=== PATIENT | male | born 1990 | race Caucasian/White ===

== ENCOUNTER 2018-02-13 20:58 | Emergency (ER) | payer BC ==
[~2018-02-13] VITALS: Ht 188 cm; Wt 152.4 kg
[2018-02-13 21:02] VITALS: Ht 188 cm; Wt 152.4 kg
[2018-02-13 21:42] LABS: microscopic required? NO
[2018-02-13 21:47] LABS: BASOPHIL % 0.4 % (0-2); PLATELET COUNT 285 x10^3mcL (130-400); RED CELL DISTRIBUTION WIDTH 13.4 % (11.5-14.5)
[2018-02-13 21:49] LABS: CALCIUM 8.8 mg/dL (8.5-10.1); CHLORIDE SERUM 102 mmol/L (98-107); CREATININE SERUM 0.9 mg/dL (0.7-1.3); GFR1 > 60 mL/min; GLUCOSE SERUM 111 mg/dL (74-106); POTASSIUM SERUM 3.3 mmol/L (3.5-5.1); SODIUM SERUM 137 mmol/L (136-145)
[2018-02-13 21:58] LABS: urine erythrocyte NEGATIVE (NEGATIVE)
[2018-02-13 22:01] LABS: ALBUMIN 3.8 g/dL (3.4-5.0); ALKALINE PHOSPHATASE 79 U/L (46-116); ALT/SGPT 39 U/L (16-63); AST/SGOT 15 U/L (15-37); BILIRUBIN TOTAL 0.4 mg/dL (0.20-1.00); FREE T4 1.04 ng/dL (0.76-1.46); LIPASE 65 IU/L (73-393); TOTAL PROTEIN, SERUM 7.8 g/dL (6.4-8.2)
[2018-02-13 23:00] VITALS: BP 151/78
== END 2018-02-13 23:00 | disposition home or self-care (01) ==
LOC: ED 20:58
PROVIDERS: Emergency Medicine
DX: E87.6 Hypokalemia (principal)
CPT/HCPCS: 36415; 84439; 85378

== ENCOUNTER 2018-11-20 21:10 | Emergency (ER) | payer BC ==
[~2018-11-20] VITALS: Ht 188 cm; Wt 160.6 kg
[2018-11-20 21:13] VITALS: Ht 188 cm; Wt 160.6 kg
[2018-11-20 22:58] VITALS: BP 122/74
== END 2018-11-20 22:58 | disposition home or self-care (01) ==
LOC: ED 21:10
DX: M79.662 Pain in left lower leg (principal)
CPT/HCPCS: Q0092